=== PATIENT | male | born 1955 | race Caucasian/White ===

== ENCOUNTER 2024-09-06 15:15 | Emergency (ER) | payer MEDICARE ==
[~2024-09-06] VITALS: Ht 172.7 cm; Wt 77.7 kg
[2024-09-06] MEDS ORDERED: IBLOOD GLUCOSE TEST STRIP 1 EA TEST XX ONE (15:45)
[2024-09-06 15:59] LABS: BASOPHILS 0.5 % (0-2); EOSINOPHILS 1.6 % (0-6); HEMATOCRIT 50.1 % (35.0-50.0); HEMOGLOBIN 16.9 g/dL (12.0-18.0); LYMPHOCYTES 19.9 % (24-44); MCH 33.4 (27-36); MCHC 33.8 g/dl (30-36); MCV 98.8 fl (81-99); MONOCYTES 11.2 % (0-12); NEUTROPHILS 66.8 % (39-80); PLATELET COUNT 232 K/uL (140-440); RBC 5.07 M/ul (4.3-5.7); RDW 14.3 (10.5-15.0)
[2024-09-06 16:08] LABS: PARTIAL THROMBOPLASTIN TIME 26.1 Sec (22.9-41.3)
[2024-09-06 16:09] LABS: INR 1.04 (0.80-1.30); PROTIME 12.9 Sec (11.2-14.2)
[2024-09-06 16:15] LABS: ALBUMIN 3.7 g/dL (3.4-5.0); ANION GAP 13.9 (7-21); BILIRUBIN, TOTAL 0.3 ng/dL (0.2-1.0); BUN/CREATININE RATIO 13.82 (6.0-28.6); CALCIUM 9.2 mg/dL (8.5-10.1); CREATININE, SERUM 0.94 mg/dL (0.70-1.30); POTASSIUM 3.9 mmol/L (3.5-5.1); PROTEIN, TOTAL 7.4 g/dL (6.4-8.2)
[2024-09-06 17:43] LABS: AMPHETAMINES, URINE NEGATIVE (NEGATIVE); BARBITURATES, URINE NEGATIVE (NEGATIVE); BENZODIAZEPINE, URINE NEGATIVE (NEGATIVE); BUPRENORPHINE, URINE NEGATIVE (NEGATIVE); CANNABINOID, URINE NEGATIVE (NEGATIVE); COCAINE, URINE NEGATIVE (NEGATIVE); ECSTASY, URINE NEGATIVE (NEGATIVE); FENTANYL, URINE NEGATIVE (NEGATIVE); METHADONE, URINE NEGATIVE (NEGATIVE); OPIATES, URINE NEGATIVE (NEGATIVE); OXYCODONE, URINE NEGATIVE (NEGATIVE); PHENCYCLIDINE, URINE NEGATIVE (NEGATIVE)
[2024-09-06] MEDS ORDERED: PLAVIX75 MG PO (18:22)
[2024-09-06] MEDS ORDERED: LIPITOR40 MG PO (18:22)
[2024-09-06] MEDS ORDERED: LOW DOSE ASPIRI81 MG PO (18:22)
[2024-09-06] MEDS ORDERED: LISINOPRIL10 MG PO (18:22)
[2024-09-06] MEDS ORDERED: ASPIRIN 325 MG TAB PO ONE (18:30)
[2024-09-06] MEDS ORDERED: CLOPIDOGREL BISULFATE 75 MG TAB PO ONE (18:30)
[2024-09-06 18:55] VITALS: BP 188/100
--- NOTE | 2024-09-06 22:59 | EKG ---
[facility] [address] [place] [address] Signed Normal sinus rhythm Normal ECG No previous ECGs available Confirmed by Jericho Lowery MD () on 09/06/2024 10:59:08 PM Electronically Signed By: JERICHO LOWERY MD 09/06/24 2259 PATIENT NAME: PATSY FELICIANO Electrocardiogram DATE OF : 55 PHYSICIAN: JERICHO LOWERY MD REPORT #: [id number] REPORT IS CONFIDENTIAL AND NOT TO BE RELEASED WITHOUT AUTHORIZATION
== END 2024-09-06 18:57 | disposition home or self-care (01) ==
LOC: ED 15:15
PROVIDERS: Emergency Medicine
DX: I63.9 Cerebral infarction, unspecified (principal); H53.8 Other visual disturbances; I10 Essential (primary) hypertension; F17.210 Nicotine dependence, cigarettes, uncomplicated; Z79.899 Other long term (current) drug therapy; F10.90 Alcohol use, unspecified, uncomplicated; F12.90 Cannabis use, unspecified, uncomplicated
CPT/HCPCS: 36415; 70450; 70496; 70498; 70551; 71045; 80053; 80307; 83735; 84484; 85025; 85610; 85730; 93005; 93010; 99284-25; Q9967